=== PATIENT | male | born 1940 | race Two or more races ===

== ENCOUNTER → 2020-04-29 | Emergency (ER) | payer OTHER ==
[~2020-04-29] VITALS: Ht 182.9 cm; Wt 158.8 kg
[~2020-04-29] MED LIST: POTASSIUM EFFERVESENT TAB 25 MEQ PO ONE; cefTRIAXone 1GM/50ML D5W 50 ML IV ONE
[2020-04-29 13:28] LABS: Basophils # (auto) 0 10 ^3/uL (0-0.2); Basophils % (auto) 0.3 % (0.0-2.0); Eosinophils # (auto) 0.2 10 ^3/uL (0-0.8); Eosinophils % (auto) 1.8 % (0.0-7.0); Hematocrit 43.6 % (41.0-53.0); Hemoglobin 14.3 g/dL (13.5-17.5); Lymphocytes # (auto) 0.4 10 ^3/uL (0.4-5.4); Lymphocytes % (auto) 4.1 % (10.0-50.0); Mean Corpuscular Hemoglobin 28.1 pg (28.0-32.0); Mean Corpuscular Hgb Conc. 32.7 g/dL (32.0-36.0); Monocytes # (auto) 1.2 10 ^3/uL (0-1.3); Monocytes % (auto) 11.3 % (0.0-12.0); Neutrophils # (auto) 8.5 10 ^3/uL (1.6-8.6); Neutrophils % (auto) 82.5 % (37.0-80.0); Nucleated Red Blood Cells % 0.1 %; Platelet Count (auto) 226 10^3/uL (140-450); Red Blood Cells 5.08 10^6/uL (4.5-5.90); Red Cell Distribution Width 17.5 % (11.8-14.3); White Blood Cell 10.4 10^3/uL (4.4-10.8)
[2020-04-29 13:47] LABS: Albumin 2.6 g/dL (3.4-5.0); Anion Gap 5 (5-15); Blood Urea Nitrogen 16 mg/dL (7-18); Calcium 7.8 mg/dL (8.5-10.1); Carbon Dioxide 29 mmol/L (21-32); Chloride 104 mmol/L (98-107); Glucose 79 mg/dL (74-106); Potassium 3.4 mmol/L (3.5-5.1); Sodium 138 mmol/L (136-145)
[2020-04-29 13:53] LABS: BUN/Creatinine Ratio 22.2
[2020-04-29 13:54] LABS: Alanine Aminotransferase 19 U/L (16-61); Alkaline Phosphatase 100 U/L (45-117); Aspartate Aminotransferase 11 U/L (15-37); Bilirubin, Total 0.8 mg/dL (0.2-1.0); GFR African American 136 mL/min; GFR Non-African American 112 mL/min; Total Protein 7.8 g/dL (6.4-8.2)
[2020-04-29 13:59] LABS: Urine Bacteria NONE SEEN /hpf (None Seen); Urine Blood Negative /uL (Negative); Urine Specific Gravity 1.006 (1.001-1.035); Urine WBC 1 /hpf (0 - 3)
[2020-04-29 17:46] VITALS: BP 149/71
== END | disposition short-term general hospital (02) ==
LOC: EDBD 12:45 → ER 12:45
DX: R07.81 Pleurodynia (principal); L03.115 Cellulitis of right lower limb; R60.0 Localized edema; E44.0 Moderate protein-calorie malnutrition; E87.6 Hypokalemia; I50.9 Heart failure, unspecified; Z68.42 Body mass index [BMI] 45.0-49.9, adult
CPT/HCPCS: 36415; 71101; 72170; 72192; 80053; 81001; 83880; 84484; 85025; 96365; 99285; J0696